=== PATIENT | male | born 1990 | race Caucasian/White ===

== ENCOUNTER 2021-04-01 08:59 | Emergency (ER) | payer OTHER, SELFPAY ==
[2021-04-01 09:06] VITALS: BP 144/72; PULSE 75; RESP 16; TEMP 36.6; O2SAT 99
--- NOTE | 2021-04-01 09:10 | ED.URI ---
HPI - URI/Sore Throat General Chief Complaint: Eye Problems Stated Complaint: Eye Problem Time Seen by Provider: 04/01/21 09:10 Source: patient and family History of Present Illness HPI Narrative: PATIENT PRESENTS WITH A 3 DAY HISTORY OF NASAL CONGESTION AND BILATERAL EYE IRRITATION AND REDNESS. PATIENT IS NOT COVID VACCINATED. DENIES ANY SHORTNESS OF BREATH AND NO CHEST PAIN. MD elicited complaint: nasal congestion Onset (ago): day(s) Related Data Allergies Allergy/AdvReac Type Severity Reaction Status Date / Time No Known Allergies Allergy Verified 04/01/21 09:16 Review of Systems Review of Systems: CONSTITUTIONAL: Denies chills, or sweats. Reports fever and generalized body aches EYES: Denies visual changes, redness, or discharge. ENT: Denies otalgia. Reports nasal congestion runny nose and sore throat CARDIOVASCULAR: Denies chest pain, palpitations, or edema. RESPIRATORY: Denies dyspnea. Reports occasional cough GASTROINTESTINAL: Denies abdominal pain, nausea, vomiting, or diarrhea. GENITOURINARY: Denies dysuria or hematuria. SKIN: Denies rash or itching. MUSCULOSKELETAL: Denies back pain, joint pain, or myalgia. Reports generalized body aches NEUROLOGIC: Denies headache, numbness, or weakness. PSYCHIATRIC: Denies anxiety or depression. [facility] Comments At time of signature, agree with nursing past medical, surgical, social and family history. There is no relevant family history pertinent to the presenting complaint Exam Narrative: The patient is a well-developed, well-nourished in no acute distress. SKIN: Skin is warm and dry without erythema, swelling or exudate. There is good turgor. No tenting. HEAD: Atraumatic. Normocephalic. No temporal or scalp tenderness. EYES: Moist and bright. Bilateral conjunctivitis scant amount of yellowish drainage to corner of both eyes. PERRLA. Extraocular motions intact. Gross visual acuity intact. EARS: Pinna is normal shape and contour. Clear external auditory canals. TM pearly vela with good cone of light, no erythema or suppuration. Bilateral cerumen noted no gross hearing deficit. NOSE: pink, moist mucosa with good air movement. Clear rhinorrhea without nasal flaring. Septum midline. Mouth: moist mucous membranes. THROAT; mild erythema noted to posterior oropharynx with moderate postnasal drainage. Without exudate or ulceration.. Uvula midline. Normal movement of soft palate. NECK: Supple and nontender with full range of motion without discomfort. No meningeal signs. LUNGS: Equal and bilateral breath sounds without wheezes, rales or rhonchi. CHEST: The chest wall is without retractions or use of accessory muscles. HEART: Has a regular rate and rhythm without murmur, gallops, click or rub. ABDOMEN: Soft, nontender with positive active bowel sounds. No rebound tenderness. EXTREMITIES: Without cyanosis, clubbing or edema. Equal 2+ distal pulses and 2 second capillary refill noted. NEUROLOGIC: alert, active, . The patient moves all extremities with normal muscle strength. Normal muscle tone is noted. Normal coordination is noted. NO focal neurological findings noted. Eyes: Conjunctivae: conjunctival abnormality (BILATERAL CONJUNCTIVITIS) Pupils: Equal, round and reactive pupils present EOM: EOMs intact bilaterally Course Course Level of Care: Express Care Visit Vital Signs Vital signs: Vital Signs Temperature 36.6 C 04/01/21 09:06 Pulse Rate 75 04/01/21 09:06 Respiratory Rate 16 04/01/21 09:06 Blood Pressure 144/72 H 04/01/21 09:06 Pulse Oximetry 99 04/01/21 09:06 Temperature 36.6 C 04/01/21 09:17 Pulse Rate 75 04/01/21 09:17 Respiratory Rate 16 04/01/21 09:17 Blood Pressure 144/72 H 04/01/21 09:17 Pulse Oximetry 99 04/01/21 09:17 Please [place] schedule a followup visit with your personal physician for further evaluation and treatment. Including recheck and discussion of your blood pressure. If your symptoms persist, change or worsen significantly
[2021-04-01 09:17] VITALS: BP 144/72; PULSE 75; RESP 16; TEMP 36.6; O2SAT 99
== END 2021-04-01 09:40 | disposition home or self-care (01) ==
PROVIDERS: Emergency Provider Nurse Practitioner Family
DX: H10.9 Unspecified conjunctivitis (principal); J06.9 Acute upper respiratory infection, unspecified; Z20.822 Contact with and (suspected) exposure to COVID-19
CPT/HCPCS: 87426; 99213; C9803; G0463